=== PATIENT | female | born 1945 | race Caucasian/White ===

== ENCOUNTER → 2018-10-10 | Outpatient (CLI) | payer BC ==
[2015-04-30 21:04] VITALS: BP 173/79
--- NOTE | 2018-10-10 16:23 | KCIC ---
MR of the right knee HISTORY: Right knee pain and swelling, fell August 2018 and 2017. TECHNIQUE: Routine multiplanar sequences are obtained. FINDINGS: No evidence of a medial meniscal tear. No evidence of lateral meniscal tear. The anterior and posterior cruciate ligaments are intact. Mild intercondylar notch stenosis due to osteophytes. Medial collateral ligament is intact. Iliotibial band unremarkable. The fibular collateral ligament, biceps femoris tendon and popliteus tendon are intact. Extensor mechanism is intact. Small joint effusion. No evidence of significant Reza's cyst. Severe cartilage loss at the patellofemoral joint. Moderate overall chondromalacia at the medial and lateral joints. No aggressive bone destruction or acute fracture. There is a small hypointense structure surrounded by fluid just medial to the medial femoral condyle and superficial to the medial collateral ligament, most likely a small loose body measuring 6 mm. Sagittal series 5, image 4. IMPRESSION: 1. Primary osteoarthritis, greatest at the patellofemoral joint. 2. Probable small loose body superficial to the proximal medial collateral ligament. Electronically signed by: Derick Martinez MD (10/10/2018 4:20 PM) [facility]-[id number]
== END | disposition home or self-care (01) ==
LOC: KCIC MRI 14:28
PROVIDERS: ATTEND Orthopaedic Surgery
DX: M17.11 Unilateral primary osteoarthritis, right knee (principal); M94.261 Chondromalacia, right knee; M25.461 Effusion, right knee; M25.761 Osteophyte, right knee
CPT/HCPCS: 73721

== ENCOUNTER → 2020-02-12 | Outpatient (CLI) | payer BC ==
[2015-04-30 21:04] VITALS: BP 173/79
--- NOTE | 2020-02-12 12:41 | KCIC ---
MRI Thoracic Spine without contrast History: Thoracic radiculopathy, new pain and burning sensation in the upper thoracic region, history of compression fracture Technique: Multiplanar, multi sequential noncontrast MR imaging was performed of the thoracic spine. Comparison: None Findings: There is old T6 compression fracture, no associated marrow edema, very minimal osseous retropulsion superiorly without spinal stenosis. There is no evidence of recent compression fracture. There is very minimal grade 1 anterior spondylolisthesis T5-T6. There is accentuation of thoracic kyphosis near the T6 level. There is multilevel [id number] degenerative disc disease greatest of mid to inferior thoracic levels. There is no significant thoracic spinal stenosis. There is no significant focal posterior disc abnormality of the thoracic spine. There are some scattered small cystic foci in the neural foramina more likely due to small nerve root sleeve cysts. Facet degenerative change results in minimal narrowing of the right T8-T9 and T10-11 neural foramina. Impression: 1. There is old T6 compression fracture, no evidence of recent compression fracture. 2. There is no significant thoracic spinal stenosis. There is mild thoracic neural foramina compromise due to facet degenerative change. Electronically signed by: Andrez Aviles MD (02/12/2020 12:38 PM) [id number]
== END ==
LOC: KCIC MRI 10:41
PROVIDERS: ATTEND Family Medicine
DX: M47.24 Other spondylosis with radiculopathy, thoracic region (principal)
CPT/HCPCS: 72146

== ENCOUNTER → 2020-02-21 | Outpatient (CLI) | payer BC ==
[~2020-02-21] MED LIST: ACET-704 PO; ASPI-482 PO; ASPI-630 PO; ATROVENT HFA12.9 GM IH; CALC-558 PO; CALC-98 PO; CALC300T5 PO; CYCL10TA2 PO; ERYT250T14 PO; ESTR0.3T PO; IOHEXOL 180 MG/ML 10 ML VIAL. ONE; LOSA-73 PO; LOSA25TA54 PO; MULT-208 PO; MULT-658 PO; OMEP20TA8 PO; ONDA4TAB10 PO; PREMPRO 0.3 MG1 EACH PO; PROVENTIL HFA6.7 G2 INH; PROVENTIL HFA6.7 GM IH; QUIN300T3 PO; THYR60TA PO; THYR90TA PO; methylPREDNISolone ACETATE 40 MG/ML VIAL. ONE; methylPREDNISolone ACETATE 80 MG/ML VIAL. ONE
--- NOTE | 2020-02-21 21:25 | PAIN ---
DATE OF SERVICE: 02/21/2020 INITIAL CONSULTATION FOR PAIN CLINIC CHIEF COMPLAINT: Mid upper back pain. HISTORY OF PRESENT ILLNESS: The patient is a 74-year-old female who presents with history of pain in mid upper back after a fall at home on 04/27/2019. The patient reports that she has significant pain in the mid upper back at that time, radiating around to the right and left. She had punctured rib at that time, had a chest tube. She was hospitalized for about 17 days and diagnosed with a T6 compression fracture as well. When she was sent over the hospital, the pain was better, but never gone. The patient reports that recently back in January, she was moving a lot of items and lifting things at home and doing some rearrangement of heavier items with boxes and furniture of some sort. The patient reports the pain is again significantly worse since that time in the mid upper back. The patient reports it is now constant, sharp, stabbing, throbbing with numbness and tingling, radiating to the right and the left, worse on the right side a bit more. The patient reports it is intermittent in intensity, but always present, burning sensation as well. She is having difficulty sleeping, it wakes her up at least 5 times a night from sleep. It does not affect her bowel or bladder control, but does affect her ability to walk. The patient has had physical therapy as her son is a physical therapist and has been working with her, which helps her for about 5-6 hours, but then the pain comes back within the next day or so. The patient reports she has had no other formal therapies. She did have MRI scan of the thoracic spine showing interval T6 compression fracture. No evidence of a recent compression fracture, mild thoracic neuroforaminal compromise due to facet degenerative change and some generalized degenerative changes in the thoracic spine itself and the disks. The patient rates her disability from 0-10, 10 being the worst, is an 8-9 with family home responsibilities, 7 with recreation and social activity, 8 with self-care and 7 with life support activities. PAST MEDICAL HISTORY: Significant for hypertension, asthma, hypothyroidism, arthritis, tremors. PREVIOUS SURGERIES: Include hysterectomy, appendectomy, cholecystectomy, foot surgery, amputation of right toe, MRSA in the left great toe. CURRENT MEDICATIONS: Include albuterol inhaler, Atrovent inhaler, daily baby aspirin, losartan, estrogen, Prempro, Centrum, thyroid and calcium. ALLERGIES: THE PATIENT IS ALLERGIC TO RYTHMOL, SOTALOL, ORAL CONTRAST DYE AND IV DYE, SULFA, CLINDAMYCIN, HYDROCODONE, DARVON, MS AND OXYCODONE, ALTHOUGH THE PATIENT REPORTS TAKING PERCOCET WITHOUT SIGNIFICANT ADVERSE EFFECTS IN THE PAST. FAMILY HISTORY: Significant for hypertension. SOCIAL HISTORY: The patient does not drink alcohol, does not smoke, does not use any illegal, illicit or recreational drugs. She is , lives locally in [place], [place] and is currently retired. REVIEW OF SYSTEMS: The patient's review of systems is positive for those items mentioned in history of present illness. All systems reviewed and otherwise negative. It is complete, full and well documented on the patient's chart. PHYSICAL EXAMINATION: VITAL SIGNS: The patient's blood pressure is 138/74, pulse 69, respirations 18, temperature 98.2 degrees Fahrenheit, height is 5 feet 8-1/2 inches, weight is 132 pounds. GENERAL: The patient is awake, alert, oriented, appropriate, very pleasant demeanor. HEENT: Shows normocephalic, atraumatic. Extraocular movements are intact and symmetrical. Oral cavity: Mucous membranes moist and pink. The patient did have a stuttered speech pattern. NECK: Shows anterior throat supple without palpable lymphadenopathy noted. Swallow reflex symmetrical. CHEST: Shows normal on inspection. Breath sounds are clear bilaterally. HEART: Shows S1, S2 clear. No murmurs auscultated. ABDOMEN: Soft, nontender, nondistended. BACK: Shows spine grossly in the midline, normal-appearing cervical lordotic curvature, minor increase in thoracic kyphosis and minor flattening of lumbar lordotic curvature. Thoracic paraspinous muscle shows symmetrical on inspection, on palpation shows some moderate tenderness diffusely bilaterally in the mid and lower distribution of the thoracic paraspinous muscles, mostly in the mid distribution with pressure over the spinous processes, significantly tender as well in the mid thoracic distribution and the upper thoracic distribution with some minor radiation into the right greater than the left, but again no asymmetry. The patient has good rotational motion of the thoracic spine with some minor tenderness with extension and flexion as well as right and left lateral rotation with pain with all these maneuvers. EXTREMITIES: The patient's upper extremities show deep tendon reflexes 2+ in the biceps, triceps tendons. Motor exam is strong with advertising copywriter strength rated at 5/5 as is bicep and tricep flexion. Peripheral pulses are 2+ radial. No peripheral edema is noted. Shoulder shrug is strong and intact without loss of strength on resistance as is abduction of shoulder to 90 degrees without loss of strength as well. SKIN: Shows warm and dry, good turgor. No edema. No sores, rashes or bruising throughout. IMPRESSION: 1. This is a 74-year-old female who presents with history a fall at home on 04/27/2019 with significant pain, T6 compression fracture, fractured ribs and pneumothorax at that time, now with increased activity, worse pain in the mid upper back with radiation both right and left greater than right in a radicular pattern. 2. Hypertension. 3. Arthritis. 4. Asthma. 5. Hypothyroidism. PLAN: Options were discussed with the patient including conservative medical management, physical therapies, interventional techniques and medications and she is interested in interventional techniques. We discussed a thoracic epidural steroid injection using description as well as anatomical models to describe the procedure. Risks were then discussed including, but not limited to bleeding, infection, possibility of epidural hematoma, subsequent neurological compromise, dural puncture, headaches, spinal cord and/or nerve damage, side effects of steroid medication and poor results regarding pain control. The patient understands and wished to proceed. The patient will return to clinic in approximately 2 weeks for followup. She was counseled on return appointment, activity level and side effects to be aware of. DIAGNOSES: Thoracic radiculopathy with thoracic degenerative disk disease and compression fracture of T6. PROCEDURE: Thoracic epidural steroid injection, translaminar approach at T6-T7 level using C-arm fluoroscopic guidance under sterile prep and drape using local anesthetic. MEDICATION INJECTED: A total of 120 mg Depo-Medrol plus 5 mL of preservative-free normal saline and 2 mL of contrast. CONDITION AT DISCHARGE: Stable. The patient tolerated the procedure well and had no complications. CAMERON KLINE MD DR: ESTUARDO/kris JOB#: [id number] / [id number]
== END | disposition home or self-care (01) ==
LOC: PNCL 13:34 → MERGE 13:34
PROVIDERS: ATTEND Anesthesiology
DX: M51.04 Intervertebral disc disorders with myelopathy, thoracic region (principal); M51.14 Intervertebral disc disorders with radiculopathy, thoracic region; I10 Essential (primary) hypertension; E03.9 Hypothyroidism, unspecified; J45.909 Unspecified asthma, uncomplicated; M19.90 Unspecified osteoarthritis, unspecified site; Z88.0 Allergy status to penicillin; Z88.5 Allergy status to narcotic agent; Z88.2 Allergy status to sulfonamides; Z88.8 Allergy status to other drugs, medicaments and biological substances; Z98.890 Other specified postprocedural states; Z79.899 Other long term (current) drug therapy
CPT/HCPCS: 62321; J1030; J1040; Q9965

== ENCOUNTER → 2020-03-08 | Outpatient (CLI) | payer BC ==
[2015-04-30 21:04] VITALS: BP 173/79
--- NOTE | 2020-03-08 11:32 | PAIN ---
DATE OF SERVICE: 03/08/2020 PROGRESS NOTE FOR PAIN CLINIC DIAGNOSES: Thoracic radiculopathy with thoracic degenerative disk disease and compression fracture T6 vertebrae. HISTORY OF PRESENT ILLNESS: The patient is a 74-year-old female who returns for followup status post thoracic epidural steroid injection x 1. The patient reports about 20-30% improvement in the right radicular pain in the chest and lateral flank as well as her back. The patient still has significant pain in the back itself in the mid upper back. The patient reports she was increasing her activity, especially the first few days after the injection, it was much better. The pain returned fairly quickly in the mid upper back and radiating to the right side. The patient reports that 10 on a scale of 10 at its worst over the past week, 8-9 on average and a 7 at its least and is an 8 today. The patient reports it is burning, stabbing, aching, sharp, radiating, constant, can be severe on the right side in the mid upper back. The patient reports no new motor or sensory deficits, awakens her from sleep occasionally, but not every night. The patient is using Biofreeze as well as Tylenol, which does decrease the pain and tramadol has been decreasing significantly. PHYSICAL EXAMINATION: VITAL SIGNS: The patient's blood pressure 159/91, pulse 67, respirations 16, temperature 97.8 degrees Fahrenheit, weight is 132 pounds. GENERAL: The patient is awake, alert, oriented, appropriate, very pleasant demeanor. HEENT: Head shows normocephalic, atraumatic. Extraocular movements are intact and symmetrical. Oral cavity: Mucous membranes moist and pink. Dentition is intact. NECK: Shows anterior throat supple without palpable lymphadenopathy noted. Swallow reflex symmetrical. CHEST: Shows normal on inspection. Breath sounds are clear bilaterally. HEART: Shows S1, S2 clear. ABDOMEN: Soft, nontender, nondistended. BACK: Shows spine grossly in the midline. Slight exaggeration of thoracic kyphosis, normal cervical lordotic curvature and lumbar lordotic curvature. Cervical paraspinous muscle shows symmetrical on inspection, with palpation shows significant tenderness in the mid upper distribution of the thoracic spine, more to the right of midline in the left, but very tender also tender over the spinous processes in the mid upper back as well, roughly over the T6-T7 region without specific radiation. EXTREMITIES: The patient's upper extremities show deep tendon reflexes 2+ in the biceps, triceps tendons. Motor exam is strong with director of collections and archives strength rated at 5/5 as is bicep and tricep flexion bilaterally. Peripheral pulses are 2+ radial. No peripheral edema bilaterally. Options were discussed with the patient. The patient's old chart was reviewed as her current medication regimen updated. Current review of systems updated today as well. We will proceed with a second thoracic epidural steroid injection today with fluoroscopic guidance. Risks were again discussed including, but not limited to bleeding, infection, possibility of epidural hematoma, subsequent neurological compromise, dural puncture, headaches, spinal cord and/or nerve damage, side effects of steroid medication and poor results regarding pain control. The patient understands and wished to proceed. The patient will return to clinic in approximately 2 weeks for followup. She was counseled on return appointment, activity level and side effects to be aware of. DIAGNOSES: Thoracic radiculopathy with thoracic degenerative disk disease, thoracic compression fracture T6. PROCEDURE: Thoracic epidural steroid injection, translaminar approach at the T7 level using C-arm fluoroscopic guidance under sterile prep and drape using local anesthetic. MEDICATION INJECTED: A total of 120 mg Depo-Medrol plus 5 mL preservative-free normal saline and 2 mL of contrast. CONDITION AT DISCHARGE: Stable. The patient tolerated the procedure well, had no complications. CAMERON KILNE MD DR: ESTUARDO/kris JOB#: [id number] / [id number]
== END | disposition home or self-care (01) ==
LOC: PNCL 10:02
PROVIDERS: ATTEND Anesthesiology
DX: M48.54XA Collapsed vertebra, not elsewhere classified, thoracic region, initial encounter for fracture (principal); M51.14 Intervertebral disc disorders with radiculopathy, thoracic region; Z88.2 Allergy status to sulfonamides; Z79.899 Other long term (current) drug therapy
CPT/HCPCS: 62321; J1030; J1040; Q9965

== ENCOUNTER → 2020-04-01 | Outpatient (CLI) | payer BC ==
[2015-04-30 21:04] VITALS: BP 173/79
--- NOTE | 2020-04-01 11:15 | PDOC ---
Progress Note - Pain Clinic Date of Service: DOS: DATE: 04/01/20 TIME: 11:09 Diagnosis: Dx: Thoracic radiculopathy with thoracic degenerative disc disease and thoracic compression fracture T6 History or Present Illness: HPI: 74-year-old female returns follow-up status post thoracic epidural injections x2. Patient reports about 50% improvement with the burning pain being significantly reduced in the mid upper back and the right side. Patient reports still significant pain in the back itself between the shoulder blades slightly right of midline in roughly the T6-7 distribution. Patient reports she is increasing her activity degrees and comfort during household activities. Patient try with greater ease sleeping better as well but it still wakes her from sleep sometimes about every 6-7 hours but not every night. Patient reports no new motor or sensory deficits no new bowel or bladder incontinence or other complaints. Physical Exam: VS: Blood pressure 130/85 pulse 74 respiration 16 temperature 97.8 Height height is 5 foot 8 inches weight is 1 3 3 pounds PE: PHYSICAL EXAMINATION: GENERAL: The patient is awake, alert, oriented, appropriate, very pleasant demeanor HEENT: Shows normocephalic, atraumatic. Extraocular movements are intact and symmetrical. Oral cavity: Mucous membranes moist and pink. Dentition is intact. NECK: Shows anterior throat supple without palpable lymphadenopathy noted. Swallow reflex symmetrical. CHEST: Shows normal on inspection. Breath sounds are clear bilaterally no rales rhonchi or wheezes auscultated. HEART: Shows S1, S2 clear. No murmurs auscultated. ABDOMEN: Soft, nontender, nondistended. No palpable organomegaly is noted. BACK: Shows spine grossly in the midline. Normal-appearing cervical lordotic curvature. There is slightly increased thoracic kyphosis, some minor flattening of the lumbar lordotic curvature. Lumbar paraspinous muscles show symmetrical on inspection, on palpation shows some moderate tenderness diffusely throughout the upper, middle and lower distribution of the paraspinous muscles bilaterally and also into the lower thoracic paraspinous musculature, firm and tender, but without specific trigger points, without radiation of pain. The patient has good rotational motion of the lumbar spine, both laterally as well as extension and flexion without significant difficulty. No tenderness over the spinous processes, sacrum or sacroiliac regions. EXTREMITIES: upper extremities show deep tendon reflexes 2+ in the biceps and triceps tendons. Motor exam is 5 on a scale of 5 with right bicep and tricep flexion and 5/5 on the left. Peripheral pulses are 2+ posterior radial. No peripheral edema is noted bilaterally. upper extremities are warm and dry to touch, equal in color and appearance. SKIN: Shows warm and dry, good turgor. No edema. No sores, rashes or bruising throughout. Options were discussed with the patient. The patient's old chart was reviewed and current medication regimen updated. [] Procedure: Procedure: Options discussed with the patient. Patient's old chart was reviewed as her current medication regimen updated current review of systems updated today as well. We will proceed with a third in the series thoracic epidural steroid i njection today with fluoroscopic guidance risk again discussed including but not limited to bleeding infection possibility of epidural hematoma subsequent neurological compromise dural puncture headache spinal cord and or nerve damage side effects steroid medication/chronic pain control. Patient understands wishes to proceed. Patient return to clinic in possibly 2 weeks for follow-up and was counseled as, to activity level and side effects to be aware of. Medication Injected: Med Injected: Procedure is thoracic epidural steroid injection under local anesthetic using sterile prep and drape at the [T7] level using C-arm fluoroscopic guidance in both AP and lateral views medications injected is 120 mg Depo-Medrol + 10 mL preservative-free normal saline and 1 mL Isovue for contrast- condition at discharge is stable patient tolerated procedure well had no complications. Condition at Discharge: Condition at Discharge: Patient discharged stable patient on the procedure well had no complications. We will make referral for interventional radiology evaluation for potential T6 vertebroplasty or kyphoplasty as indicated with patient compression fracture and remaining symptomatic. CAMERON KLINE MD Apr 01, 2020 11:15
== END | disposition home or self-care (01) ==
LOC: PNCL 10:01
PROVIDERS: ATTEND Anesthesiology
DX: M51.14 Intervertebral disc disorders with radiculopathy, thoracic region (principal); M48.54XA Collapsed vertebra, not elsewhere classified, thoracic region, initial encounter for fracture; Z88.2 Allergy status to sulfonamides; Z88.8 Allergy status to other drugs, medicaments and biological substances; Z79.899 Other long term (current) drug therapy; Z79.82 Long term (current) use of aspirin
CPT/HCPCS: 62321; J1030; J1040; Q9965

== ENCOUNTER → 2020-05-29 | Outpatient (CLI) | payer BC ==
[2015-04-30 21:04] VITALS: BP 173/79
[~2020-05-29] MED LIST changes: -IOHEXOL 180 MG/ML 10 ML VIAL. ONE; +TRAM50TA PO; -methylPREDNISolone ACETATE 40 MG/ML VIAL. ONE; -methylPREDNISolone ACETATE 80 MG/ML VIAL. ONE
--- NOTE | 2020-05-29 13:26 | KCIC ---
THORACIC SPINE WO CONTRAST INDICATION: Reason: THORACIC PAIN / Spl. Instructions: / History: Eval T6 compression fx again. Pain in mid thoracic spine, getting worse. TECHNIQUE: Multi-planar multi-weighted magnetic resonance imaging of the thoracic spine was performed without contrast using the standard protocol. COMPARISON: 02/12/2020. FINDINGS: Unchanged chronic T6 compression deformity with minimal osseous retropulsion and no spinal canal stenosis. No acute fracture. Mild multilevel degenerative disc desiccation and disc height loss. Bone marrow signal intensity is normal. Faint T2 hyperintense spinal cord signal and volume loss at T6 consistent with myelomalacia. The conus medullaris terminates at a normal level. No soft tissue abnormality within the visualized chest or abdomen. The visualized thoracic aorta is normal caliber. No significant neuroforaminal narrowing or spinal canal stenosis. IMPRESSION: Unchanged chronic T6 compression deformity. No new compression deformities. Electronically signed by: Andrez Ennis MD (05/29/2020 1:22 PM) [id number]
== END ==
LOC: KCIC MRI 10:51
PROVIDERS: ATTEND Anesthesiology
DX: M43.8X4 Other specified deforming dorsopathies, thoracic region (principal); M54.14 Radiculopathy, thoracic region
CPT/HCPCS: 72146

== ENCOUNTER → 2020-06-06 | Outpatient (CLI) | payer BC ==
[2015-04-30 21:04] VITALS: BP 173/79
[~2020-06-06] MED LIST changes: +BUPIVACAINE MPF 0.25% 10 ML VIAL. ONE; +methylPREDNISolone ACETATE 40 MG/ML VIAL. ONE
--- NOTE | 2020-06-06 12:18 | PDOC ---
Progress Note - Pain Clinic Date of Service: DOS: DATE: 06/06/20 TIME: 12:12 Diagnosis: Dx: Thoracic radiculopathy with thoracic degenerative disc disease Compression fracture T6 Myofascial pain History or Present Illness: HPI: 34-year-old female returns follow-up status post thoracic epidural steroid injection x3. Patient reports initially about 50% improved but the pain is returning down significantly in the mid upper back but very well demarcated in the mid upper back itself just right of midline. We discussed this with her on the phone earlier in the week and she returns today for follow-up complaining of pain in the mid upper back right of midline but very well circumscribed. Patient reports is a 10 on scale 10 at its worst 8 on average 6 its least and is an 8 today. Describes the pain as burning, and searing pain in the mid upper back on the right side. Patient ports no specific radiation at this time worse with activity bending stooping lifting items with her right arm and is noticeable when she is walking her dog after about 10 to 15 minutes she has to stop and rest or put her hand making a fist on the area of pain and push on it to get it to decrease. Continues to do stretching exercises at home and or heat application which does help as well. Physical Exam: VS: Blood pressure is 135/81 pulse 76 respirations 18 temperature 97.4 F weight is 135 pounds PE: PHYSICAL EXAMINATION: GENERAL: The patient is awake, alert, oriented, appropriate, very pleasant carlton anor HEENT: Shows normocephalic, atraumatic. Extraocular movements are intact and symmetrical. Oral cavity: Mucous membranes moist and pink. NECK: Shows anterior throat supple without palpable lymphadenopathy noted. Swallow reflex symmetrical. CHEST: Shows normal on inspection. Breath sounds are clear bilaterally, no rales rhonchi or wheezes auscultated. HEART: Shows S1, S2 clear. No murmurs auscultated. ABDOMEN: Soft, nontender, nondistended. No palpable organomegaly is noted. No rebound or guarding demonstrated. BACK: Shows spine grossly in the midline. Normal-appearing cervical lordotic curvature. There is slightly increased thoracic kyphosis, some minor flattening of the lumbar lordotic curvature. Thoracic paraspinous muscles show symmetrical on inspection on palpation to very well demarcated area approximately 10 cm right of midline in the paraspinous musculature in the mid upper thoracic distribution very firm very tender with palpation very ropelike musculature consistent with areas of trigger point muscle. No specific radiation is demonstrated with palpation. Left side paraspinous musculature is supple without trigger points or abnormalities. Lumbar paraspinous muscles show symmetrical on inspection, on palpation shows some moderate tenderness diffusely throughout the upper, middle and lower distribution of the paraspinous muscles bilaterally and also into the lower thoracic paraspinous musculature, firm and tender, but without specific trigger points, without radiation of pain. The patient has good rotational motion of the lumbar spine, both laterally as well as extension and flexion without significant difficulty. No tenderness over the spinous processes, sacrum or sacroiliac regions. EXTREMITIES: Upper extremities show deep tendon reflexes 2+ in the biceps and triceps tendons. Motor exam is 5 on a scale of 5 with right materials director strength, biceps and triceps flexion and 5/5 on the left. Peripheral pulses are 2+ posterior radial. No peripheral edema is noted bilaterally. Uper extremities are warm and dry to touch, equal in color and appearance. SKIN: Shows warm and dry, good turgor. No edema. No sores, rashes or bruising throughout. Procedure: Procedure: Options were discussed with the patient. Patient will chart reviews her current medication regimen updated current review of systems updated today as well. We will proceed with trigger point injections of the identified right paramedian thoracic paraspinous musculature. Risks are discussed including but not limited to bleeding infection possibility of intravascular injection sequelae pneumothorax side effects of steroid medication and poor results regarding pain control. Patient understands wished to proceed patient return to clinic in approximately 2 weeks for follow-up was counseled as to return appointment activity level and side effects to be aware of. Patient is given physical therapy orders as her son is a physical therapist, for ultrasound treatment as well as pressure massage stretching and postural exercises. Medication Injected: Med Injected: Under sterile prep and drape patient's thoracic spine was prepped and draped in usual fashion and identifying the thoracic paraspinous musculature right of midline approximately T6-7-8 level very firm ropelike musculature was injected using a 25-gauge needle after negative aspiration each injection site total of 3 sites total of 40 mg Depo-Medrol and 6 cc of 0.25% bupivacaine, 2 cc at each site, was then injected. Needle was withdrawn and sterile bandages applied patient tolerated the procedure well had no complications. Condition at Discharge: Condition at Discharge: Condition at discharge stable patient tolerated the procedure well had no imm ediate complications. CAMERON KLINE MD Jun 06, 2020 12:18
== END ==
LOC: PNCL 11:22
PROVIDERS: ATTEND Anesthesiology
DX: M48.54XA Collapsed vertebra, not elsewhere classified, thoracic region, initial encounter for fracture (principal); M51.14 Intervertebral disc disorders with radiculopathy, thoracic region; M79.18 Myalgia, other site; I10 Essential (primary) hypertension; E03.9 Hypothyroidism, unspecified; Z88.2 Allergy status to sulfonamides; Z88.8 Allergy status to other drugs, medicaments and biological substances; Z79.899 Other long term (current) drug therapy
CPT/HCPCS: 20552; J1030; J3490

== ENCOUNTER → 2020-10-23 | Outpatient (CLI) | payer BC ==
[2015-04-30 21:04] VITALS: BP 173/79
[~2020-10-23] MED LIST changes: +IOHEXOL 180 MG/ML 10 ML VIAL. ONE; +methylPREDNISolone ACETATE 80 MG/ML VIAL. ONE
--- NOTE | 2020-10-23 14:29 | PDOC4 ---
PROCEDURE Procedure Patient was consented for bilateral thoracic facet medial branch blocks. Risks were discussed including but not limited to: Bleeding, infection, possibility of epidural hematoma and subsequent neurological compromise, dural puncture, headaches, spinal cord and/or nerve damage, side effects of steroid medication, and poor results regarding pain control. Patient understands and wished to proceed. Under sterile prep and drape using C-arm fluoroscopic guidance AP and lateral and oblique views, bilateral T5, T6, T7 facet joint injections were performed, medications injected: 120 mg Depo-Medrol +6 cc 0.25% bupivacaine +3 cc contrast. Condition at discharge stable patient tolerated the procedure well and no co mplications. CAMERON KLINE MD Oct 23, 2020 14:29
--- NOTE | 2020-10-23 14:29 | PDOC ---
Progress Note - Pain Clinic Date of Service: DOS: DATE: 10/23/20 TIME: 14:24 Diagnosis: Dx: Thoracic degenerative disc disease with thoracic radiculopathy thoracic compression fracture T6 and thoracic spondylosis Myofascial pain History or Present Illness: HPI: 75-year-old female returns for follow-up status post thoracic epidural steroid injections x3 most recently seen June 06, 2020. Patient also had trigger point injections and reports everything helps but only very limited time. Also patient has been undergoing physical therapy very regularly and has had very good results but only very limited where her pain is only decreased for maybe a week at the most. Patient reports very brief decrease in pain the pain is now and creasing is severe described as tingling burning sharp constant severe unbearable at times in the mid upper back patient reports a 9 on scale 10 is worst over the past week 8 on average 5 its least and is an 8 today. Patient reports no new radiation of pain no new motor or sensory deficits no bowel or bladder incontinence but significant pain in the mid upper back more on the right than the left. Patient reports it disturbs her sleep every 6-7 hours and she cannot get to a comfortable position. Patient reports no new motor or sensory deficits no new bowel or bladder incontinence. Physical Exam: VS: Pressure is 141/82 pulse 71 respirations 16 temperature 98.1 F weight is 135 pounds PE: PHYSICAL EXAMINATION: GENERAL: The patient is awake, alert, oriented, appropriate, very pleasant demeanor HEENT: Shows normocephalic, atraumatic. Extraocular movements are intact and symmetrical. Oral cavity: Mucous membranes moist and pink. Dentition is intact. NECK: Shows anterior throat supple without palpable lymphadenopathy noted. Swallow reflex symmetrical. CHEST: Shows normal on inspection. Breath sounds are clear bilaterally, no rales or rhonchi. HEART: Shows S1, S2 clear. No murmurs auscultated. ABDOMEN: Soft, nontender, nondistended, flat. No palpable organomegaly is noted. BACK: Shows spine grossly in the midline. Normal-appearing cervical lordotic curvature. There is slightly increased thoracic kyphosis, some minor flattening of the lumbar lordotic curvature. Thoracic paraspinous muscles show significant tenderness bilaterally in the mid upper distribution of the thoracic paraspinous muscles but is very well demarcated around the T6 area more tender right of midline than left but tender bilaterally, but without specific trigger points, without radiation of pain. The patient has good rotational motion of the thoracic spine, both laterally as well as extension and flexion without significant difficulty. EXTREMITIES: Lower extremities show deep tendon reflexes 2+ in the patellar and tendo calcaneus tendons. Motor exam is 5 on a scale of 5 with right dorsiflexion, extension, quadriceps and hamstring flexion and 5/5 on the left. Peripheral pulses are 1+ posterior tibial. No peripheral edema is noted bilaterally. Lower extremities are warm and dry to touch, equal in color and appearance. SKIN: Shows warm and dry, good turgor. No edema. No sores, rashes or bruising throughout. Procedure: Procedure: Options were discussed with the patient. Patient chart was reviewed as her current medication regimen updated current review of systems updated today as well. We will proceed with bilateral thoracic facet medial branch blocks at the T5, T6 and, T7 levels with fluoroscopic guidance. Risks were discussed including but not limited to: Bleeding, infection, possibility of epidural hematoma and subsequent neurological compromise, dural puncture, headaches, spinal cord and/or nerve damage, side effects of steroid medication, and poor results regarding pain control. Patient understands and wished to proceed. Patient will return to the clinic in approximate 2 weeks for follow-up, was counseled as return appointment activity level and side effects to be aware of. Medication Injected: Med Injected: Under sterile prep and drape using C-arm fluoroscopic guidance AP and lateral and oblique views, bilateral T5, T6, T7 facet joint injections were performed, medications injected: 120 mg Depo-Medrol +6 cc 0.25% bupivacaine +3 cc contrast. Condition at discharge stable patient tolerated the procedure well and no complications. Condition at Discharge: Condition at Discharge: Condition at discharge stable, patient tolerated procedure well and had no complications. CAMERON KLINE MD Oct 23, 2020 14:29
== END | disposition home or self-care (01) ==
LOC: PNCL 13:30
PROVIDERS: ATTEND Anesthesiology
DX: M51.14 Intervertebral disc disorders with radiculopathy, thoracic region (principal); M47.24 Other spondylosis with radiculopathy, thoracic region; M48.54XA Collapsed vertebra, not elsewhere classified, thoracic region, initial encounter for fracture; M79.10 Myalgia, unspecified site; Z79.82 Long term (current) use of aspirin; Z79.899 Other long term (current) drug therapy; Z98.890 Other specified postprocedural states; Z91.041 Radiographic dye allergy status; Z88.2 Allergy status to sulfonamides; Z88.1 Allergy status to other antibiotic agents; Z88.8 Allergy status to other drugs, medicaments and biological substances
CPT/HCPCS: 64490; 64491; 64492; J1030; J1040; J3490; Q9965

== ENCOUNTER → 2020-11-22 | Outpatient (CLI) | payer BC ==
[2015-04-30 21:04] VITALS: BP 173/79
[~2020-11-22] MED LIST changes: -BUPIVACAINE MPF 0.25% 10 ML VIAL. ONE; +BUPIVACAINE MPF 0.5% 30 ML VIAL. ONE; -IOHEXOL 180 MG/ML 10 ML VIAL. ONE
--- NOTE | 2020-11-22 12:35 | PDOC ---
Progress Note - Pain Clinic Date of Service: DOS: DATE: 11/22/20 TIME: 12:30 Diagnosis: Dx: Thoracic radiculopathy with thoracic degenerative disc disease Compression fracture T6 Thoracic spondylosis Myofascial pain History or Present Illness: HPI: 75-year-old female returns for follow-up status post bilateral thoracic median branch facet blocks. Patient reports about 75 to 80% improvement for about 10 to 14 days after about 3 days following the shots initially was quite sore but after 3 days the pain returned to decrease and was improved by 75 to 80% for about 2 weeks. Patient reports now the pain is beginning to return but is still well below baseline and only on the right side left side is feeling much better patient reports is an 8 on a scale of 10 is worst over the past week on the right side 8 on average 3 days least is 8 today. Patient reports is aching and sharp burning and stabbing at times radiating constant with activity standing walking especially patient reports it still awaken her from sleep at night for the first 2 weeks it did not she was doing much better with distance walking doing household activities while sleeping better during that time period. She reports no new motor or sensory deficits no new changes. Physical Exam: VS: Blood pressure is 144/72 pulse 67 respiration 16 temperature 97.6 3 Fahrenheit weight is 134 pounds PE: PHYSICAL EXAMINATION: GENERAL: The patient is awake, alert, oriented, appropriate, very pleasant demeanor HEENT: Shows normocephalic, atraumatic. Extraocular movements are intact and symmetrical. Oral cavity: Mucous membranes moist and pink. NECK: Shows anterior throat supple without palpable lymphadenopathy noted. Swallow reflex symmetrical. CHEST: Shows normal on inspection. Breath sounds are clear bilaterally, no rales or rhonchi bilaterally. HEART: Shows S1, S2 clear. No murmurs auscultated. ABDOMEN: Soft, nontender, nondistended, obese. No palpable organomegaly is noted. No rebound or guarding demonstrated. BACK: Shows spine grossly in the midline. Normal-appearing cervical lordotic curvature. There is slightly increased thoracic kyphosis, some minor flattening of the lumbar lordotic curvature. Thoracic paraspinous muscles show symmetrical on inspection with palpation significant tenderness with palpation in the mid upper distribution of the thoracic paraspinous muscles only on the right side with palpation also over the spinous processes in the mid upper distribution of the thoracic spine as well. Lower thoracic spine shows no significant tenderness with outpatient nor does the superior aspect of the thoracic spine. No radiation is demonstrated. EXTREMITIES: Lower extremities show deep tendon reflexes 2 in the patellar and tendo calcaneus tendons. Motor exam is 5 on a scale of 5 with right dorsiflexion, extension, quadriceps and hamstring flexion and 5/5 on the left. Peripheral pulses are 1+ posterior tibial. No peripheral edema is noted bilaterally. Lower extremities are warm and dry to touch, equal in color and appearance. Upper extremity show deep tendon reflexes at 2+ in the bicep triceps tendons, motor exam is strong with 5 out of 5 analysis intern strength bicep and tricep flexion and equal. SKIN: Shows warm and dry, good turgor. No edema. No sores, rashes or bruising throughout. Procedure: Procedure: Options discussed with the patient. Patient chart reviews her current medication regimen updated current review of systems updated today as well. We will proceed with repeat thoracic facet medial branch blocks at T5, 6, and 7 with fluoroscopic guidance. Risks were discussed including but not limited to: Bleeding, infection, possibility of epidural hematoma and subsequent neurological compromise, dural puncture, headaches, spinal cord and/or nerve damage, side effects of steroid medication, and poor results regarding pain control. Patient understands and wished to proceed. Patient return to clinic in approximately 2 weeks for follow-up, was counseled as return appointment activity level and side effects to be aware of. We did discuss possibility of radiofrequency ablation in the future depending on results today as well. Patient is interested. Medication Injected: Med Injected: Under sterile prep and drape using C-arm fluoroscopic guidance AP and lateral and oblique views, right T5 , 6 ,and 7 facet joint injections were performed, medications injected: 120 mg Depo-Medrol +3 cc 0.5% bupivacaine +2 cc contrast. Condition at discharge stable patient tolerated the procedure well and no complications. Condition at Discharge: Condition at Discharge: Condition at discharge stable, patient already procedure well and had no complications. CAMERON KLINE MD Nov 22, 2020 12:35
--- NOTE | 2020-11-22 12:36 | PDOC4 ---
PROCEDURE Procedure Patient was consented for right-sided thoracic facet medial branch blocks with fluoroscopic guidance. Risks were discussed including but not limited to: Bleeding, infection, possibility of epidural hematoma and subsequent neurological compromise, dural puncture, headaches, spinal cord and/or nerve damage, side effects of steroid medication, and poor results regarding pain control. Patient understands and wished to proceed. Under sterile prep and drape using C-arm fluoroscopic guidance AP and lateral and oblique views, right T5 , 6 ,and 7 facet joint injections were performed, medications injected: 120 mg Depo-Medrol +3 cc 0.5% bupivacaine +2 cc contrast. Condition at discharge stable patient tolerated the procedure well and no complications. CAMERON KLINE MD Nov 22, 2020 12:36
== END | disposition home or self-care (01) ==
LOC: PNCL 11:51
PROVIDERS: ATTEND Anesthesiology
DX: M51.14 Intervertebral disc disorders with radiculopathy, thoracic region (principal); M47.24 Other spondylosis with radiculopathy, thoracic region; M48.54XA Collapsed vertebra, not elsewhere classified, thoracic region, initial encounter for fracture; M79.18 Myalgia, other site; Z79.82 Long term (current) use of aspirin; Z79.899 Other long term (current) drug therapy; Z98.890 Other specified postprocedural states; Z88.2 Allergy status to sulfonamides; Z91.041 Radiographic dye allergy status; Z88.8 Allergy status to other drugs, medicaments and biological substances; Z88.1 Allergy status to other antibiotic agents; Z88.6 Allergy status to analgesic agent
CPT/HCPCS: 64490; 64491; 64492; J1030; J1040; J3490

== ENCOUNTER → 2021-06-27 | Outpatient (CLI) | payer BC ==
[2015-04-30 21:04] VITALS: BP 173/79
[~2021-06-27] MED LIST changes: -BUPIVACAINE MPF 0.5% 30 ML VIAL. ONE; +CYCL10TA19 PO; -CYCL10TA2 PO; -methylPREDNISolone ACETATE 40 MG/ML VIAL. ONE; -methylPREDNISolone ACETATE 80 MG/ML VIAL. ONE
--- NOTE | 2021-06-30 08:41 | KCIC ---
MRI THORACIC SPINE WO INDICATION: Worsening back pain, T6 compression fracture. TECHNIQUE: Multi-planar multi-weighted magnetic resonance imaging of the thoracic spine was performed without contrast using the standard protocol. COMPARISON: 05/29/2020, 02/12/2020. FINDINGS: Unchanged chronic T6 compression deformity with minimal osseous retropulsion and no spinal canal sten osis. No acute fracture. Mild multilevel degenerative disc desiccation and disc height loss. Bone mar row signal intensity is normal. Faint T2 hyperintense spinal cord signal and volume loss at T6 consistent with myelomalacia. The conu s medullaris terminates at a normal level. No soft tissue abnormality within the visualized chest or abdomen. The visualized thoracic aorta is n ormal caliber. No significant neuroforaminal narrowing or spinal canal stenosis. IMPRESSION: Unchanged chronic T6 compression deformity. No new compression deformities. Electronically signed by: Andrez Ennis MD (06/30/2021 8:39 AM) [id number]
== END ==
LOC: KCIC MRI 14:24
PROVIDERS: ATTEND Family Medicine
DX: M48.54XD Collapsed vertebra, not elsewhere classified, thoracic region, subsequent encounter for fracture with routine healing (principal); M51.34 Other intervertebral disc degeneration, thoracic region; M54.14 Radiculopathy, thoracic region
CPT/HCPCS: 72146